=== PATIENT | male | born 1955 | race Two or more races ===

== ENCOUNTER → 2016-10-08 | Outpatient (REF) | payer OTHER | END | disposition home or self-care (01) | LOC: M SMT 17:11 | PROVIDERS: ATTEND Nurse Practitioner Women's Health | DX: N13.2 Hydronephrosis with renal and ureteral calculous obstruction (principal) ==

== ENCOUNTER → 2016-11-23 | Outpatient (CLI) | payer OTHER ==
--- NOTE | 2016-11-25 14:51 | SLEEPCENT ---
DATE OF PROCEDURE: 11/23/2016 REQUESTING PROVIDER: Gwendolyn Guzman NP INTERPRETATION: Nocturnal polysomnography was performed for retitration of pressure therapy in this patient with severe obstructive sleep apnea syndrome, currently using bilevel pressure. For testing, a kooaba Simplus full face mask of medium size was used. Initial pressure of 16/12 was applied to the circuit and the lights were extinguished. 7 hours and 2 minutes of data were reviewed. There were 365 minutes of sleep identified. Sleep latency was short at 5 minutes. Rapid eye movement (REM) latency was normal at 61 minutes. Sleep architecture improved with optimal pressure therapy. There were three REM periods noted. Overall sleep efficiency was 87.5%. The patient's electrocardiogram (EKG) showed a sinus rhythm with an average heart rate of 57 beats per minute. Electroencephalogram (EEG) showed normal waveforms for awake and sleep. Persistence of respiratory events prompted an increase in continuous positive airway pressure (CPAP). Optimal pressure was found to be inspiratory 20/expiratory of 16. Some limb activity persisted throughout the study. Limb movement arousal index was 9.9, increased from the diagnostic night. IMPRESSION: 1. Obstructive sleep apnea syndrome (G47.33). RECOMMENDATIONS: Nightly use of bilevel pressure therapy at inspiratory 20/expiratory 16.
== END ==
LOC: M SLEEP 19:09
PROVIDERS: ATTEND Nurse Practitioner Adult Health
DX: G47.33 Obstructive sleep apnea (adult) (pediatric) (principal)

== ENCOUNTER 2019-09-18 10:41 | Emergency (ER) | payer OTHER ==
[~2019-09-18] VITALS: Ht 177.8 cm; Wt 135.4 kg
[2019-09-18] MEDS ORDERED: IBUP200C33 PO (11:04)
--- NOTE | 2019-09-18 12:06 | REP ---
Portable chest, single AP view with the patient upright, 47 a.m.: There are no comparisons. The lung claros are clear. The cardiac size is normal. The flora, mediastinum, and skeletal structures are unremarkable. Impression: Negative portable chest. Electronically Signed by Surjit Dixon MD 09/18/2019 11:58 A
[2019-09-18 12:20] LABS: BASO # 0.1 10^3/uL (0.0-0.2); BASO % 0.6 % (0.0-1.0); EOS # 0.2 10^3/uL (0.0-0.5); EOS % 1.8 % (0.0-3.0); HEMOGLOBIN 16.6 g/dl (13.5-17.5); LYMPH # 2.3 10^3/uL (1.5-5.0); LYMPH % 24.1 % (24.0-44.0); MEAN CORPUSCULAR HEMOGLOBIN 28.4 pg (27.0-33.0); MEAN CORPUSCULAR HGB CONC 31.9 g/dl (32.0-36.5); MONO # 0.7 10^3/uL (0.0-0.8); MONO % 7.6 % (0.0-5.0); NEUTROPHILS # 6.3 10^3/uL (1.5-8.5); NEUTROPHILS % 65.6 % (36.0-66.0); PLATELET COUNT, AUTOMATED 219 10^3/uL (150-450); RED BLOOD COUNT 5.84 10^6/uL (4.30-6.10); WHITE BLOOD COUNT 9.6 10^3/uL (4.0-10.0)
[2019-09-18 12:33] LABS: INR 1.06; PROTHROMBIN TIME 13.5 SECONDS (11.8-14.0)
[2019-09-18 12:34] LABS: PARTIAL THROMBOPLASTIN TIME 33.9 SECONDS (25.0-38.4)
[2019-09-18] MEDS: METOPROLOL 5 MG/5 ML VIAL IV SCH ×3 (12:41→13:26)
[2019-09-18 13:01] LABS: BLOOD UREA NITROGEN 26 MG/DL (7-18); CALCIUM LEVEL 8.9 MG/DL (8.8-10.2); CARBON DIOXIDE LEVEL 28 MEQ/L (21-32); CHLORIDE LEVEL 112 MEQ/L (98-107); CK-MB VALUE MASS 6.7 NG/ML (<3.6); CPK CREATINE PHOSPHOKINASE 207 U/L (39-308); CREATININE FOR GFR 0.98 MG/DL (0.70-1.30); GLOMERULAR FILTRATION RATE > 60.0 (>49); GLUCOSE, FASTING 113 MG/DL (70-100); MAGNESIUM LEVEL 2.3 MG/DL (1.8-2.4); MB/CK RELATIVE INDEX 3.24 (< OR =4); POTASSIUM SERUM 4.8 MEQ/L (3.5-5.1); SODIUM LEVEL 144 MEQ/L (136-145); THYROID STIMULATING HORMONE 0.784 uIU/ML (0.358-3.740); TROPONIN I < 0.02 NG/ML (< 0.10)
[2019-09-18] MEDS ORDERED: METOPROLOL 5 MG/5 ML VIAL IV STA (13:29)
[2019-09-18 13:56] VITALS: BP 108/70
[2019-09-18] MEDS ORDERED: METOPROLOL TART 50 MG TAB PO ONE (14:00)
[2019-09-18] MEDS ORDERED: DIGOXIN 0.25 MG TAB PO STA (15:25)
[2019-09-18] MEDS ORDERED: DIGOXIN INJ 0.5 MG/2 ML AMP (J1160) IV ONE (16:00)
[2019-09-18] MEDS ORDERED: ATEN50TA2 PO (16:27)
[2019-09-18] MEDS ORDERED: ELIQ5TAB PO (16:27)
[2019-09-18] MEDS ORDERED: DIGO0.253 PO (16:27)
[2019-09-18] MEDS ORDERED: APIXABAN 5 MG TAB (ELIQUIS) PO ONE (16:30)
[2019-09-18 17:41] VITALS: BP 131/93
--- NOTE | 2019-09-18 18:48 | ECGEPIP ---
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
--- NOTE | 2019-09-18 18:48 | ECGEPIP ---
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
--- NOTE | 2019-09-18 18:52 | ECGEPIP ---
[facility] - ED Test Date: 2019-09-18 Pat Name: BUD GILLIAM Department: Room: - Gender: Male Patient Access Coordinator: BEBETO : 1955 Requested By: MARISABEL Jaffe Order Number: [id number] Reading MD: Boom Tapia Measurements Intervals [place] Rate: 65 P: 52 UT: 174 QRS: -46 QRSD: 98 T: 83 QT: 337 QTc: 353 Interpretive Statements SINUS RHYTHM LEFT ANTERIOR FASCICULAR BLOCK NONSPECIFIC T-WAVE ABNORMALITY RHYTHM/RATE CHANGE COMPARED TO 09/18/19 Electronically Signed on 09-18-2019 18:51:52 EST by Boom Tapia
== END 2019-09-18 17:42 | disposition home or self-care (01) ==
LOC: M ED 10:41
DX: I48.91 Unspecified atrial fibrillation (principal); E11.9 Type 2 diabetes mellitus without complications; G47.33 Obstructive sleep apnea (adult) (pediatric); Z79.899 Other long term (current) drug therapy; Z79.01 Long term (current) use of anticoagulants; Z99.89 Dependence on other enabling machines and devices
CPT/HCPCS: 71045; 80048; 82550; 82553; 83036; 83735; 84439; 84443; 84484; 85025; 85610; 85730; 93005; 93041; 94760; 96374; 96375; 96376; 99285; J1160

== ENCOUNTER → 2021-09-26 | Outpatient (CLI) | payer MEDICARE ==
[~2021-09-26] MED LIST: ATEN50TA2 PO; DIGO0.253 PO; ELIQ5TAB PO; IBUP200C33 PO
[2021-09-26 14:32] LABS: HEMATOCRIT 51.7 % (42.0-52.0); HEMOGLOBIN 17.1 g/dl (13.5-17.5); MEAN CORPUSCULAR HEMOGLOBIN 29.2 pg (27.0-33.0); MEAN CORPUSCULAR HGB CONC 33.1 g/dl (32.0-36.5); MEAN CORPUSCULAR VOLUME 88.2 fl (80.0-96.0); PLATELET COUNT, AUTOMATED 227 10^3/uL (150-450); RED BLOOD COUNT 5.86 10^6/uL (4.30-6.10); WHITE BLOOD COUNT 11.8 10^3/uL (4.0-10.0)
[2021-09-26 20:33] LABS: BLOOD UREA NITROGEN 25 MG/DL (7-18); CALCIUM LEVEL 9.2 MG/DL (8.8-10.2); CARBON DIOXIDE LEVEL 30 MEQ/L (21-32); CHLORIDE LEVEL 109 MEQ/L (98-107); CREATININE FOR GFR 0.93 MG/DL (0.70-1.30); GLOMERULAR FILTRATION RATE > 60.0 (>49); GLUCOSE, FASTING 100 MG/DL (70-100); NT-PRO BNP 390 PG/ML (<125); POTASSIUM SERUM 4.9 MEQ/L (3.5-5.1); SODIUM LEVEL 142 MEQ/L (136-145); THYROID STIMULATING HORMONE 0.948 uIU/ML (0.358-3.740)
[2021-09-27 16:41] LABS: MAGNESIUM LEVEL 2.1 MG/DL (1.7-2.2)
== END ==
LOC: M LAB 14:06
PROVIDERS: ATTEND Physician Assistant
DX: I48.19 Other persistent atrial fibrillation (principal); R06.02 Shortness of breath

== ENCOUNTER → 2021-10-31 | Outpatient (CLI) | payer MEDICARE ==
[2021-10-31 13:42] LABS: BLOOD UREA NITROGEN 25 MG/DL (7-18); CALCIUM LEVEL 9.5 MG/DL (8.8-10.2); CARBON DIOXIDE LEVEL 33 MEQ/L (21-32); CHLORIDE LEVEL 105 MEQ/L (98-107); CREATININE FOR GFR 1.15 MG/DL (0.70-1.30); GLOMERULAR FILTRATION RATE > 60.0 (>49); GLUCOSE, FASTING 208 MG/DL (70-100); NT-PRO BNP 449 PG/ML (<125); POTASSIUM SERUM 4.1 MEQ/L (3.5-5.1); SODIUM LEVEL 140 MEQ/L (136-145)
== END ==
LOC: M LAB 12:24
PROVIDERS: ATTEND Physician Assistant
DX: I50.32 Chronic diastolic (congestive) heart failure (principal)

== ENCOUNTER → 2022-01-29 | Outpatient (CLI) | payer OTHER | LOC: M SLEEP 20:00 | PROVIDERS: ATTEND Nurse Practitioner Family | DX: G47.33 Obstructive sleep apnea (adult) (pediatric) (principal) ==

== ENCOUNTER → 2023-12-16 | Outpatient (CLI) | payer OTHER | LOC: M PLAIMG 10:03 | PROVIDERS: ATTEND Physician Assistant | DX: I77.810 Thoracic aortic ectasia (principal) ==

== ENCOUNTER → 2025-03-27 | Outpatient (CLI) | payer OTHER ==
[2025-03-27 14:30] LABS: PLATELET COUNT, AUTOMATED 210 10^3/uL (150-450)
[2025-03-27 14:47] LABS: CALCIUM LEVEL 9.6 MG/DL (8.3-10.6); CARBON DIOXIDE LEVEL 29.0 MMOL/L (20-31); CHLORIDE LEVEL 105.0 MMOL/L (98-107); CREATININE FOR GFR 1.07 MG/DL (0.70-1.30); GLOMERULAR FILTRATION RATE 74.2 (>42); MAGNESIUM LEVEL 2.0 MG/DL (1.8-2.4); POTASSIUM SERUM 4.4 MMOL/L (3.5-5.1); SODIUM LEVEL 144.0 MMOL/L (136-145)
== END ==
LOC: M LAB 13:43
PROVIDERS: ATTEND Physician Assistant
DX: I48.21 Permanent atrial fibrillation (principal); Z79.899 Other long term (current) drug therapy